=== PATIENT | male | born 1940 | race Caucasian/White ===

== ENCOUNTER → 2017-02-06 | Outpatient (CLI) | payer MEDICARE ==
[2017-02-06 08:15] LABS: MEAN CORPUSCULAR HGB CONC 35.4 g/dL (31.0-37.0); MEAN PLATELET VOLUME 9.2 FL (6.0-9.5); PLATELET COUNT 150 10^3uL (150-450)
[2017-02-06 08:32] LABS: MEAN CORPUSCULAR HEMOGLOBIN 36.2 PG (26.0-34.0); MEAN CORPUSCULAR VOLUME 102 FL (80-100)
[2017-02-06 08:43] LABS: ALBUMIN 3.9 g/dL (3.4-5.0); ANION GAP 15.6 MEQ/L (3-15); CALCULATED IONIZED CALCIUM 4.2 mg/dL (3.8-4.6); TOTAL PROTEIN 6.8 g/dL (6.4-8.5)
[2017-02-06 09:06] LABS: BAND NEUTROPHILS % 0 % (0-6); EOSINOPHILS % 2 % (0-4); LYMPHOCYTES # 1.2 #; MONOCYTES # 0.9 #; MONOCYTES % 17 % (3-11); RBC MORPH NORMAL (NORMAL); SEGMENTED NEUTROPHILS % 59 % (51-67); TOTAL CELLS COUNTED 100
== END ==
LOC: LAB 08:01
PROVIDERS: ATTEND Internal Medicine
DX: Z00.00 Encounter for general adult medical examination without abnormal findings (principal); M05.832 Other rheumatoid arthritis with rheumatoid factor of left wrist; E78.4 Other hyperlipidemia; Z12.5 Encounter for screening for malignant neoplasm of prostate; M1A.09X0 Idiopathic chronic gout, multiple sites, without tophus (tophi)
CPT/HCPCS: 36415; 80053; 80061; 84443; 84550; 85025; G0103; 84153

== ENCOUNTER → 2017-02-15 | Outpatient (CLI) | payer MEDICARE ==
--- NOTE | 2017-02-15 12:08 | Diagnostic Imaging Report ---
INDICATION: 76-year-old male for screening osteoporosis. COMPARISON: None available. TECHNIQUE: DEXA of the lumbar spine and bilateral hips was performed. FINDINGS: The L2-L4 vertebrae were used for assessment of the lumbar spine. The bone mineral density for the total lumbar spine is 1.092 g/cm2, and the T score is -1.2, and Z-score is -1.0 . The left femoral neck has a bone density of 0.849 g/cm2, and the T score is -1.7, and Z-score is -0.6 . The right femoral neck has a bone density of 0.924 g/cm2, and the T score is -1.1, and Z-score is 0.0 . IMPRESSION: 1. Osteopenia (low bone mass). 2. Consider followup DEXA in 12 months to reassess bone mineral density. Dictated by: Dictated on workstation # [id number]
== END ==
LOC: RAD 09:27
PROVIDERS: ATTEND Internal Medicine
DX: M05.832 Other rheumatoid arthritis with rheumatoid factor of left wrist (principal); M85.89 Other specified disorders of bone density and structure, multiple sites
CPT/HCPCS: 77080